=== PATIENT | male | born 1950 | race Caucasian/White ===

== ENCOUNTER 2020-06-19 16:04 | Emergency (ER) | payer OTHER ==
[~2020-06-19] VITALS: Ht 175.3 cm; Wt 79.4 kg
[2020-06-19 16:32] VITALS: BP 102/64
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
[2020-06-19] MEDS ORDERED: LIDODERM700 M1 TOPIC (17:17)
[2020-06-19] MEDS ORDERED: IBUPROFEN600 M1 ORAL (17:17)
[2020-06-19] MEDS ORDERED: ROBAXIN-750750 MG PO (17:17)
[2020-06-19 17:25] VITALS: BP 104/68
== END 2020-06-19 17:25 | disposition home or self-care (01) ==
LOC: EMR 16:27
DX: S39.012A Strain of muscle, fascia and tendon of lower back, initial encounter (principal); V43.52XA Car driver injured in collision with other type car in traffic accident, initial encounter; Y92.410 Unspecified street and highway as the place of occurrence of the external cause; E11.9 Type 2 diabetes mellitus without complications; I50.9 Heart failure, unspecified
CPT/HCPCS: 72131; 99284